=== PATIENT | female | born 1950 | race Caucasian/White ===

== ENCOUNTER 2018-02-27 20:12 | Emergency (ER) | payer MEDICARE, OTHER ==
[2018-02-27] MEDS ORDERED: PREDNISONE 20 MG TABLET PO ONE (20:49)
[2018-02-27] MEDS ORDERED: DIPHENHYDRAMINE HCL 25 MG CAPSULE PO ONE (20:49)
[2018-02-27] MEDS ORDERED: FAMOTIDINE 20 MG TABLET PO ONE (20:50)
--- NOTE | 2018-02-27 20:54 | ER Document Report ---
ED Medical Screen (RME) - General Chief Complaint: Lip Swelling Stated Complaint: SWOLLEN LIPS Time Seen by Provider: 02/27/18 20:49 Notes: 67-year-old female chief complaint of rash and puffy lip since last night, states that rash has worsened prompting her to come to the emergency department. Rash is very itchy. No obvious allergic contacts, no history of the same. - Related Data Allergies/Adverse Reactions: No Known Allergies Allergy (Unverified 02/27/18 20:45) Past Medical History Renal/ Medical History: Denies: Hx Peritoneal Dialysis Physical Exam - Vital signs Vitals: Temp Pulse Resp BP Pulse Ox 98.2 F 81 17 126/67 H 97 02/27/18 20:29 02/27/18 20:29 02/27/18 20:29 02/27/18 20:29 02/27/18 20:29 - HEENT Eyes: Normal Pharynx: No: Uvular edema, Potential airway comprom. - Skin Skin irregularity: Rash - Urticaria mainly over the lower abdomen and back, also somewhat on neck and arms Course - Re-evaluation Re-evalutation: Oropharyngeal exam unremarkable, borderline questionable puffiness of the lips, obvious wheals/urticaria on exam. Discussed with patient, decision was made to proceed with prednisone, antihistamines and hold off on epinephrine at this time. Lungs clear, no distress. - Vital Signs Vital signs: Temp Pulse Resp BP Pulse Ox 98.2 F 81 17 126/67 H 97 02/27/18 20:29 02/27/18 20:29 02/27/18 20:29 02/27/18 20:29 02/27/18 20:29
[2018-02-27] MEDS ORDERED: EPINEPHRINE INJ/PF 1 MG/1 ML AMPULE IM ONE (23:00)
--- NOTE | 2018-02-27 23:01 | ER Document Report ---
ED General - General Chief Complaint: Lip Swelling Stated Complaint: SWOLLEN LIPS Time Seen by Provider: 02/27/18 20:49 Notes: Patient is a 67-year-old female chief complaint of rash and puffy lips since last night, states that rash has worsened prompting her to come to the emergency department. Rash is very itchy. No obvious allergic contacts, no history of the same. She denies swelling of the tongue or throat, denies difficulty breathing or swallowing. - Related Data Allergies/Adverse Reactions: No Known Allergies Allergy (Unverified 02/27/18 20:45) Past Medical History - General Information source: Patient - Social History Smoking Status: Never Smoker Frequency of alcohol use: None Drug Abuse: None Lives with: Alone Family History: Reviewed & Not Pertinent Patient has suicidal ideation: No Patient has homicidal ideation: No - Past Medical History Cardiac Medical History: Reports: Hx Hypertension Renal/ Medical History: Denies: Hx Peritoneal Dialysis Past Surgical History: Reports: Hx Oral Surgery - wisdom teeth, Hx Orthopedic Surgery - carpal tunnel, Hx Tonsillectomy - Immunizations Hx Diphtheria, Pertussis, Tetanus Vaccination: Yes Review of Systems - Review of Systems Constitutional: No symptoms reported EENT: See HPI Cardiovascular: No symptoms reported Respiratory: No symptoms reported Gastrointestinal: No symptoms reported Genitourinary: No symptoms reported Female Genitourinary: No symptoms reported Musculoskeletal: No symptoms reported Skin: See HPI Hematologic/Lymphatic: No symptoms reported Neurological/Psychological: No symptoms reported Physical Exam - Vital signs Vitals: Temp Pulse Resp BP Pulse Ox 98.2 F 81 17 126/67 H 97 02/27/18 20:29 02/27/18 20:29 02/27/18 20:29 02/27/18 20:29 02/27/18 20:29 - Notes Notes: GENERAL: Alert, interacts well. No acute distress. HEAD: Normocephalic, atraumatic. EYES: Pupils equal, round, and reactive to light. Extraocular movements intact. ENT: Oral mucosa moist, tongue midline. Unremarkable oropharyngeal exam. Questionable minimal swelling of the upper lip, this is not definite. NECK: Full range of motion. Supple. Trachea midline. LUNGS: Clear to auscultation bilaterally, no wheezes, rales, or rhonchi. No respiratory distress. HEART: Regular rate and rhythm. No murmur ABDOMEN: Soft, non-tender. Non-distended. Bowel sounds present in all 4 quadrants. EXTREMITIES: Moves all 4 extremities spontaneously. No edema, normal radial and dorsalis pedis pulses bilaterally. No cyanosis. BACK: no cervical, thoracic, lumbar midline tenderness. No saddle anesthesia, normal distal neurovascular exam. NEUROLOGICAL: Alert and oriented x3. Normal speech. [cranial nerves II through XII grossly intact]. PSYCH: Normal affect, normal mood. SKIN: Urticaria noted over the neck and over the lower abdomen and back bilaterally. Questionably small amount on the forearms and hands. Course - Re-evaluation Re-evalutation: I saw patient in triage and then again in the room. Not without any significant change after antihistamines and prednisone. Discussed with patient , decision was made to proceed with epinephrine. She still has questionably puffy lips although not overtly on my exam, oropharyngeal exam unremarkable otherwise, clear lungs with no wheezing. After treatment with epinephrine rash significantly faded, patient states she feels much improved. Patient has been the emergency department for several hours now, she has had only improvement of symptoms without any worsening of symptoms and symptoms started yesterday. Patient is requesting to go home. Provided with epinephrine pen, medications, discussed medications, EpiPen administration, and strict return precautions. Patient states satisfaction and agreement with plan. - Vital Signs Vital signs: Temp Pulse Resp BP Pulse Ox 98.5 F 82 18 109/59 L 98 02/28/18 01:07 02/28/18 01:07 02/28/18 01:07 02/28/18 01:07 02/28/18 01:07 Discharge - Discharge Clinical Impression: Urticaria, Lip swelling Condition: Stable Disposition: HOME, SELF-CARE Additional Instructions: Your examination is most consistent with allergic reaction although the cause of this is not certain. Take prednisone and antihistamines as prescribed, follow-up with primary care for additional evaluation and management. In the event of a severe allergic reaction (swelling of the face, tongue, throat , difficulty breathing, etc.), take your EpiPen and return immediately to the emergency department. Prescriptions: Cetirizine HCl [Zyrtec 10 mg Tablet] 1 tab PO DAILY #30 tablet Epinephrine [Epipen 2-Manolo] 0.3 mg IM ASDIR PRN #1 packet PRN Reason: Famotidine [Pepcid 20 mg Tablet] 20 mg PO DAILY #12 tablet Prednisone [Deltasone 10 mg Tablet] 10 mg PO ASDIR PRN #21 tablet PRN Reason:
[2018-02-28 01:10] VITALS: BP 109/59
== END 2018-02-28 01:10 | disposition home or self-care (01) ==
LOC: ER 20:12
DX: L50.9 Urticaria, unspecified (principal); K13.0 Diseases of lips
CPT/HCPCS: 99283; 96372; A9270 ×3; J0171; J7512